=== PATIENT | male | born 1980 | race Caucasian/White ===

== ENCOUNTER 2020-08-11 20:01 | Emergency (ER) | payer BC ==
[2020-08-11 20:49] LABS: HEMOGLOBIN 15.1 gm/dl (14.0-17.5); RED BLOOD COUNT 4.97 M/UL (4.20-5.50); WHITE BLOOD COUNT 12.1 K/UL (4.5-11.0)
[2020-08-11 21:23] LABS: BUN/CREATININE RATIO 15 (0-10)
[2020-08-11] MEDS ORDERED: TYLENOL W/CODEIN1 EA PO (21:27)
[2020-08-11] MEDS ORDERED: IBUPROFEN600 MG PO (21:27)
[2020-08-11] MEDS ORDERED: BACITRAYCIN PLU28 GM TP (21:27)
[2020-08-11] MEDS ORDERED: KLOR-CON M1010 MEQ PO (22:18)
== END 2020-08-12 00:13 | disposition home or self-care (01) ==
LOC: ER1 20:01
PROVIDERS: Internal Medicine
DX: T20.20XA Burn of second degree of head, face, and neck, unspecified site, initial encounter (principal); Z23 Encounter for immunization; T23.191A Burn of first degree of multiple sites of right wrist and hand, initial encounter; T24.121A Burn of first degree of right knee, initial encounter; T24.101A Burn of first degree of unspecified site of right lower limb, except ankle and foot, initial encounter; T31.0 Burns involving less than 10% of body surface; T23.192A Burn of first degree of multiple sites of left wrist and hand, initial encounter; T24.122A Burn of first degree of left knee, initial encounter; I10 Essential (primary) hypertension; Z90.89 Acquired absence of other organs; X08.8XXA Exposure to other specified smoke, fire and flames, initial encounter
CPT/HCPCS: 16020; 36600; 71045; 80053; 82805; 83605; 85025; 85610; 85730; 90471; 90715; 94760; 96374; 99285; J1885; J2060; J2270; J2405; J3480

== ENCOUNTER 2021-11-21 11:05 | Emergency (ER) | payer BC ==
[~2021-11-21 11:05] MED LIST: BACITRAYCIN PLU28 GM TP; IBUPROFEN600 MG PO; KLOR-CON M1010 MEQ PO; TYLENOL W/CODEIN1 EA PO
[2021-11-21 13:03] LABS: HEMOGLOBIN 16.5 gm/dl (14.0-17.5); RED BLOOD COUNT 5.44 M/UL (4.20-5.50); WHITE BLOOD COUNT 11.9 K/UL (4.5-11.0)
[2021-11-21 13:48] LABS: BUN/CREATININE RATIO 17 (0-10)
== END 2021-11-21 14:20 | disposition home or self-care (01) ==
LOC: ER1 11:05
PROVIDERS: Physician Assistant
DX: I10 Essential (primary) hypertension (principal); R20.2 Paresthesia of skin; E87.6 Hypokalemia; Z79.899 Other long term (current) drug therapy
CPT/HCPCS: 80053; 82550; 82553; 84484; 85025; 99283